=== PATIENT | female | born 2000 | race Hispanic/Latino ===

== ENCOUNTER 2020-10-25 09:12 | Inpatient (IN) | payer OTHER, SELFPAY ==
[2020-10-25] MEDS ORDERED: Ondansetron PF 4 MG/2 ML Vial ONE ×2 (09:31→13:29)
[2020-10-25] MEDS ORDERED: Labetalol HCl 100 MG/20 ML VIAL ONE (09:46)
[2020-10-25 09:48] LABS: #Basophils 0.1 thou/uL (0.0-0.2); #Eosinphils 0.2 thou/uL (0.0-0.7); #Lymphocytes 2.4 thou/uL (1.20-3.40); #Monocytes 0.4 thou/uL (0.11-0.59); #Neutrophils 5.3 thou/uL (1.40-6.50); %Basophils 0.9 % (0.0-1.0); %Eosinophils 1.8 % (0.0-10.0); %Lymphocytes 28.5 % (21.0-51.0); %Monocytes 4.8 % (0.0-10.0); %Neutrophils 63.9 % (42.0-75.0); Hemoglobin 13.1 g/dL (12.0-16.0); Mean Corpuscular HGB CONC 34.8 g/dL (32.0-36.0); Mean Corpuscular Hemoglobin 30.2 pg (27.0-31.0); Mean Corpuscular Volume 86.8 fL (78.0-98.0); Mean Platelet Volume 8.7 fL (7.4-10.4); Platelet Count 275 thou/uL (130-400); RBC Distribution Width 12.3 % (11.5-14.5); Red Blood Cell (RBC) Count 4.34 mill/uL (4.20-5.40); White Blood Cell (WBC) Count 8.3 thou/uL (4.8-10.8)
[2020-10-25 09:55] LABS: BHCG - Serum Negative (NEGATIVE)
[2020-10-25 09:56] LABS: Pregs Control Background? CLEAR/WHITE (CLR/WHITE); Pregs Control Bar Appear? YES (CONTROL BAR)
[2020-10-25 10:11] LABS: ALT (SGPT) 7 U/L (8-55); AST (SGOT) 12 U/L (5-34); Albumin 4.2 g/dL (3.5-5.0); Alkaline Phosphatase 89 U/L (40-110); Anion Gap 14 mmol/L (10-20); BUN (Urea Nitrogen) 50 mg/dL (7.0-18.7); Bilirubin, Total 0.5 mg/dL (0.2-1.2); Calc. Creatinine Clearance 0 mL/min (70-130); Calcium 9.3 mg/dL (7.8-10.44); Carbon Dioxide 21 mmol/L (22-29); Chloride 109 mmol/L (98-107); Globulin 3.3 g/dL (2.4-3.5); Glucose 88 mg/dL (70-105); Lipase 42 U/L (8-78); Potassium 4.6 mmol/L (3.5-5.1); Protein, Total 7.5 g/dL (6.0-8.3); Sodium 139 mmol/L (136-145)
[2020-10-25 10:16] LABS: Magnesium 2.4 mg/dL (1.6-2.6); Phosphorus 5.4 mg/dL (2.3-4.7)
[2020-10-25] MEDS ORDERED: hydrALAZINE 20 MG/ML VIAL ONE (11:25)
[2020-10-25] MEDS ORDERED: niCARdipine 20MG In NaCl 20 MG/200 ML BAG ONE ×2 (12:03→16:17)
[2020-10-25 13:52] LABS: Bilirubin Negative (Negative); Blood, Urine Trace (Negative); Clarity Clear (Clear); Glucose, Urine (Dipstick) Normal (Negative); Ketone, Urine Negative (Negative); Leukocyte Negative Leu/uL (Negative); Nitrite Negative (Negative); Protein, Urine (Dipstick) 100 mg/dL (Neg-Trace); Specific Gravity, Urine 1.008 (1.002-1.036); Squamous Epithelial 0-3 HPF (0-3); Urobilinogen Normal mg/dL (Less than 2); WBC/HPF 0-3 HPF (0-3); pH, Urine 6.5 (5.0-9.0)
[2020-10-25 13:54] LABS: Bacteria/HPF Rare-Few HPF (None Seen)
[2020-10-25 14:48] LABS: SARS-CoV-2 NAA Rapid Test Not Detected (NotDetected)
[2020-10-25 20:10] VITALS: BMI 21.4
[2020-10-25] MEDS: Dextrose 5 %-0.45 % NaCl 1,000 ML IV SCH (20:16)
[2020-10-25] MEDS: Ondansetron PF 4 MG/2 ML Vial IVP PRN (20:26)
[2020-10-25] MEDS: Famotidine/PF 20 mg/2ml Vial SLOW IVP SCH (20:26)
[2020-10-25] MEDS: Heparin 5,000 UNITS/ML VIAL SC SCH ×2 (20:26→22:22)
[2020-10-25] MEDS ORDERED: niCARdipine 25 MG in Sodium Chloride 0.9% 250 ML 240 ML IVPB SCH (20:30)
[2020-10-26 01:16] LABS: Prothrombin Time 13.2 sec (12.0-14.7)
[2020-10-26 01:17] LABS: PTT 34.7 sec (22.9-36.1)
[2020-10-26 01:33] LABS: Complement-C4 19.2 mg/dL (15-57)
[2020-10-26 01:51] LABS: HBSAg Index 0.17 S/CO (0-0.99); HIV (1/2) Antibody/Antigen Non-Reactive (NonReactive); HIV 1/2 INDEX 0.45 S/CO (<1.00); Hep B Surf Ag Non-Reactive S/CO (NonReactive); Hep C IgG Ab Non-Reactive (NonReactive); Hep C Index 0.07 S/CO (0-0.79)
[2020-10-26] MEDS: Dextrose 5 %-0.45 % NaCl 1,000 ML IV SCH ×3 (01:51→16:43)
[2020-10-26 02:19] LABS: Creatinine, Urine 44.87 mg/dL (47-110)
[2020-10-26] MEDS: Ondansetron PF 4 MG/2 ML Vial IVP PRN ×2 (03:30→14:52)
[2020-10-26] MEDS: Amlodipine 5 MG TAB PO SCH ×2 (08:37→20:57)
[2020-10-26] MEDS: hydrALAZINE 10 MG TAB PO SCH ×3 (08:37→20:56)
[2020-10-26] MEDS: Heparin 5,000 UNITS/ML VIAL SC SCH ×3 (08:38→20:55)
[2020-10-26 15:54] LABS: Anion Gap 10 mmol/L (10-20); BUN (Urea Nitrogen) 42 mg/dL (7.0-18.7); Calc. Creatinine Clearance 17 mL/min (70-130); Calcium 8.1 mg/dL (7.8-10.44); Carbon Dioxide 21 mmol/L (22-29); Chloride 111 mmol/L (98-107); Glucose 86 mg/dL (70-105); Potassium 4.3 mmol/L (3.5-5.1); Sodium 138 mmol/L (136-145)
[2020-10-26] MEDS: Famotidine/PF 20 mg/2ml Vial SLOW IVP SCH (20:55)
[2020-10-26] MEDS: Terazosin HCl 1 MG CAP PO SCH (20:56)
[2020-10-27] MEDS: Dextrose 5 %-0.45 % NaCl 1,000 ML IV SCH ×2 (02:50→12:53)
[2020-10-27 04:27] LABS: Reticulocyte Count 2.1 % (0.5-1.5)
[2020-10-27 04:47] LABS: Anion Gap 12 mmol/L (10-20); BUN (Urea Nitrogen) 36 mg/dL (7.0-18.7); Calc. Creatinine Clearance 18 mL/min (70-130); Calcium 8.6 mg/dL (7.8-10.44); Carbon Dioxide 20 mmol/L (22-29); Chloride 111 mmol/L (98-107); Glucose 93 mg/dL (70-105); Potassium 4.1 mmol/L (3.5-5.1); Sodium 139 mmol/L (136-145)
[2020-10-27] MEDS ORDERED: Tuberculin PPD 0.1 ML VIAL I-DERMAL SCH (08:00)
[2020-10-27] MEDS: Amlodipine 5 MG TAB PO SCH ×2 (09:00→20:32)
[2020-10-27] MEDS: hydrALAZINE 10 MG TAB PO SCH ×3 (09:00→20:33)
[2020-10-27] MEDS: Terazosin HCl 1 MG CAP PO SCH (20:32)
[2020-10-27] MEDS: Famotidine/PF 20 mg/2ml Vial SLOW IVP SCH (20:32)
[2020-10-27] MEDS ORDERED: Carvedilol 6.25 MG TAB PO SCH (22:30)
[2020-10-28] MEDS: hydrALAZINE 25 MG TAB PO SCH ×2 (09:22→20:27)
[2020-10-28] MEDS: Carvedilol 6.25 MG TAB PO SCH ×2 (09:23→20:26)
[2020-10-28] MEDS: Amlodipine 5 MG TAB PO SCH ×2 (09:23→20:26)
[2020-10-28] MEDS: Acetaminophen 325 MG TAB PO PRN (09:45)
[2020-10-28 15:13] LABS: Cytoplasmic (C-ANCA) <1:20 titer (Neg:<1:20); Perinuclear (P-ANCA) <1:20 titer (Neg:<1:20)
[2020-10-28] MEDS: Famotidine/PF 20 mg/2ml Vial SLOW IVP SCH (20:26)
[2020-10-28] MEDS: Terazosin HCl 1 MG CAP PO SCH (20:33)
[2020-10-29] MEDS: Acetaminophen 325 MG TAB PO PRN ×3 (00:15→16:52)
[2020-10-29 04:48] LABS: #Eosinphils 0.2 thou/uL (0.0-0.7); #Lymphocytes 2.5 thou/uL (1.20-3.40); #Monocytes 0.4 thou/uL (0.11-0.59); #Neutrophils 4.1 thou/uL (1.40-6.50); %Basophils 0.1 % (0.0-1.0); %Eosinophils 2.5 % (0.0-10.0); %Lymphocytes 34.8 % (21.0-51.0); %Monocytes 5.2 % (0.0-10.0); %Neutrophils 57.4 % (42.0-75.0); Hemoglobin 10.7 g/dL (12.0-16.0); Mean Corpuscular HGB CONC 34.1 g/dL (32.0-36.0); Mean Corpuscular Hemoglobin 30.2 pg (27.0-31.0); Mean Corpuscular Volume 88.5 fL (78.0-98.0); Mean Platelet Volume 8.8 fL (7.4-10.4); Platelet Count 254 thou/uL (130-400); RBC Distribution Width 12.4 % (11.5-14.5); Red Blood Cell (RBC) Count 3.56 mill/uL (4.20-5.40); White Blood Cell (WBC) Count 7.1 thou/uL (4.8-10.8)
[2020-10-29 05:00] LABS: Prothrombin Time 13.3 sec (12.0-14.7)
[2020-10-29 05:01] LABS: PTT 34.9 sec (22.9-36.1)
[2020-10-29 05:06] LABS: Albumin 3.3 g/dL (3.5-5.0); Anion Gap 14 mmol/L (10-20); BUN (Urea Nitrogen) 44 mg/dL (7.0-18.7); BUN/Creatinine Ratio 8.54; Calc. Creatinine Clearance 16 mL/min (70-130); Calcium 8.8 mg/dL (7.8-10.44); Carbon Dioxide 20 mmol/L (22-29); Chloride 108 mmol/L (98-107); Glucose 81 mg/dL (70-105); Phosphorus 5.3 mg/dL (2.3-4.7); Potassium 4.5 mmol/L (3.5-5.1); Sodium 137 mmol/L (136-145)
[2020-10-29] MEDS: Amlodipine 5 MG TAB PO SCH ×2 (09:56→21:36)
[2020-10-29] MEDS: Carvedilol 25 MG TAB PO SCH ×2 (09:57→21:36)
[2020-10-29] MEDS: hydrALAZINE 25 MG TAB PO SCH ×2 (09:57→21:35)
[2020-10-29] MEDS: Ondansetron PF 4 MG/2 ML Vial IVP PRN (19:59)
[2020-10-29] MEDS: Terazosin HCl 1 MG CAP PO SCH (21:35)
[2020-10-29] MEDS: Famotidine/PF 20 mg/2ml Vial SLOW IVP SCH (21:36)
[2020-10-30] MEDS: Ondansetron PF 4 MG/2 ML Vial IVP PRN ×2 (01:11→09:56)
[2020-10-30 04:53] LABS: #Eosinphils 0.1 thou/uL (0.0-0.7); #Lymphocytes 1.7 thou/uL (1.20-3.40); #Monocytes 0.3 thou/uL (0.11-0.59); #Neutrophils 4.8 thou/uL (1.40-6.50); %Basophils 0.2 % (0.0-1.0); %Eosinophils 1.4 % (0.0-10.0); %Lymphocytes 24.2 % (21.0-51.0); %Neutrophils 70.2 % (42.0-75.0); Mean Corpuscular HGB CONC 34.9 g/dL (32.0-36.0); Mean Corpuscular Hemoglobin 30.8 pg (27.0-31.0); Mean Corpuscular Volume 88.4 fL (78.0-98.0); Mean Platelet Volume 8.8 fL (7.4-10.4); Platelet Count 281 thou/uL (130-400); RBC Distribution Width 12.4 % (11.5-14.5); Red Blood Cell (RBC) Count 3.57 mill/uL (4.20-5.40); White Blood Cell (WBC) Count 6.9 thou/uL (4.8-10.8)
[2020-10-30 05:14] LABS: Anion Gap 15 mmol/L (10-20); BUN (Urea Nitrogen) 48 mg/dL (7.0-18.7); Calc. Creatinine Clearance 15 mL/min (70-130); Calcium 8.7 mg/dL (7.8-10.44); Carbon Dioxide 19 mmol/L (22-29); Chloride 109 mmol/L (98-107); Glucose 90 mg/dL (70-105); Potassium 4.8 mmol/L (3.5-5.1); Sodium 138 mmol/L (136-145)
[2020-10-30] MEDS ORDERED: READ PPD TEST SITE PO SCH (08:00)
[2020-10-30] MEDS: Carvedilol 25 MG TAB PO SCH ×2 (08:26→22:00)
[2020-10-30] MEDS: hydrALAZINE 25 MG TAB PO SCH ×2 (08:26→22:00)
[2020-10-30] MEDS: Amlodipine 5 MG TAB PO SCH ×2 (08:26→21:59)
[2020-10-30] MEDS ORDERED: Fentanyl 100 MCG/2 ML VIAL ONE (08:55)
[2020-10-30] MEDS ORDERED: Midazolam HCl 2 mg/2 ml Vial ONE (08:55)
[2020-10-30] MEDS ORDERED: Sodium Bicarbonate 2.5 MEQ/5 ML VIAL ONE (08:55)
[2020-10-30] MEDS ORDERED: Sodium Chloride 0.9% 1,000 ML IV SCH (11:00)
[2020-10-30] MEDS: Acetaminophen 500 MG TAB PO PRN ×2 (12:38→22:00)
[2020-10-30] MEDS: Terazosin HCl 1 MG CAP PO SCH (22:00)
[2020-10-30] MEDS: Famotidine/PF 20 mg/2ml Vial SLOW IVP SCH (22:01)
[2020-10-31 04:35] LABS: #Eosinphils 0.1 thou/uL (0.0-0.7); #Lymphocytes 1.6 thou/uL (1.20-3.40); #Monocytes 0.4 thou/uL (0.11-0.59); #Neutrophils 5.2 thou/uL (1.40-6.50); %Basophils 0.2 % (0.0-1.0); %Eosinophils 0.9 % (0.0-10.0); %Lymphocytes 21.7 % (21.0-51.0); %Monocytes 5.5 % (0.0-10.0); %Neutrophils 71.6 % (42.0-75.0); Hemoglobin 10.1 g/dL (12.0-16.0); Mean Corpuscular HGB CONC 34.3 g/dL (32.0-36.0); Mean Corpuscular Hemoglobin 30.4 pg (27.0-31.0); Mean Corpuscular Volume 88.5 fL (78.0-98.0); Mean Platelet Volume 9.1 fL (7.4-10.4); Platelet Count 284 thou/uL (130-400); RBC Distribution Width 12.4 % (11.5-14.5); Red Blood Cell (RBC) Count 3.32 mill/uL (4.20-5.40); White Blood Cell (WBC) Count 7.2 thou/uL (4.8-10.8)
[2020-10-31 04:45] LABS: Anion Gap 17 mmol/L (10-20); BUN (Urea Nitrogen) 51 mg/dL (7.0-18.7); Calc. Creatinine Clearance 14 mL/min (70-130); Calcium 8.6 mg/dL (7.8-10.44); Carbon Dioxide 15 mmol/L (22-29); Chloride 105 mmol/L (98-107); Glucose 91 mg/dL (70-105); Potassium 4.3 mmol/L (3.5-5.1); Sodium 133 mmol/L (136-145)
[2020-10-31] MEDS: Carvedilol 25 MG TAB PO SCH (09:55)
[2020-10-31] MEDS: hydrALAZINE 25 MG TAB PO SCH (09:56)
[2020-10-31] MEDS: Ondansetron PF 4 MG/2 ML Vial IVP PRN (09:56)
[2020-10-31] MEDS: Amlodipine 5 MG TAB PO SCH (09:56)
[2020-10-31 11:34] VITALS: BP 111/56; TEMP 98.5
[2020-10-31] MEDS: Acetaminophen 500 MG TAB PO PRN (14:16)
[2020-11-01 14:55] LABS: ANA Symphony (Qualitative) Negative (Negative); ANA Symphony (Quantitative) 0.3 Ratio (< 0.7 Negative)
[2020-11-01 17:32] LABS: EliA Vaculitis New Method **** NEW METHOD ****; Glomerular Basemt Membrane Ab Less than 1.9 EliAU/mL (<7 Negative)
== END 2020-10-31 15:05 | disposition home or self-care (01) | DRG 683 ==
LOC: ERS 09:12 → CCU 12:18 → 2NO 10-26 13:23
PROVIDERS: ADMIT Internal Medicine; ATTEND Internal Medicine
PROC: 0TB03ZX Excision of Right Kidney, Percutaneous Approach, Diagnostic (ICD-10-PCS; principal; 2020-10-30)
DX: N17.9 Acute kidney failure, unspecified (principal); I16.1 Hypertensive emergency; E87.2 Acidosis; N04.9 Nephrotic syndrome with unspecified morphologic changes; Z83.3 Family history of diabetes mellitus; Z82.49 Family history of ischemic heart disease and other diseases of the circulatory system; R11.2 Nausea with vomiting, unspecified; E83.39 Other disorders of phosphorus metabolism
CPT/HCPCS: 0240U; 36415; 36416; 50200; 71046; 76770; 77002; 80048; 80053; 80069; 81003; 81015; 82570; 83516; 83690; 83735; 84100; 84156; 84703; 85025; 85046; 85610; 85652; 85730; 86038; 86060; 86160; 86225; 86256; 86580; 86803; 87040; 87070; 87340; 87389; 88329; 93005; 94760; 96365; 96366; 96375; 96376; J0360; J1644; J2250; J2405; J3010; J7050; S0028